=== PATIENT | female | born 1935 | race Caucasian/White ===

== ENCOUNTER 2016-02-08 09:48 | Inpatient (IN) | payer MEDICARE, OTHER ==
[2016-02-08] VITALS (9 sets, daily range): BP systolic 118–134; RESP 16–24; TEMP 97.8–98.5; Ht 154.9 cm; Wt 56.2 kg
[~2016-02-08] VITALS: Ht 154.9 cm; Wt 56.2 kg
[2016-02-08] MEDS ORDERED: DUONEB INH PRN (12:15)
[2016-02-08] MEDS: DUONEB INH SCH ×3 (14:32→23:12)
[2016-02-08] MEDS: LEVOTHYROXINE 0.175 MG TAB PO SCH (17:59)
[2016-02-08] MEDS: PANTOPRAZOLE 40 MG TAB PO SCH (18:00)
[2016-02-08] MEDS: MIRTAZAPINE 15 MG TAB PO SCH (18:58)
[2016-02-08] MEDS: AMIODARONE 200 MG TAB PO SCH (18:58)
[2016-02-08] MEDS: DOXYCYCLINE 100 MG TAB PO SCH (18:58)
[2016-02-08] MEDS: Furosemide 40 MG TAB PO SCH (18:58)
[2016-02-08] MEDS: GUAIFENESIN ER 600 MG TABCR PO SCH (21:22)
[2016-02-08] MEDS: Ascorbic Acid 500 MG TAB PO SCH (21:23)
[2016-02-08] MEDS: SPIRONOLACTONE 25 MG TAB PO SCH (21:23)
[2016-02-08] MEDS: DOCUSATE SOD 100 MG CAP PO SCH (21:23)
[2016-02-08] MEDS: GABAPENTIN 600 MG TAB PO SCH (21:25)
[2016-02-09] VITALS (11 sets, daily range): BP systolic 118–137; RESP 20; TEMP 97.5–98.7
[2016-02-09] MEDS: DUONEB INH SCH ×5 (05:12→23:12)
[2016-02-09] MEDS: LEVOTHYROXINE 0.175 MG TAB PO SCH (06:21)
[2016-02-09] MEDS: PANTOPRAZOLE 40 MG TAB PO SCH (06:21)
[2016-02-09] MEDS: GUAIFENESIN ER 600 MG TABCR PO SCH ×2 (08:20→20:20)
[2016-02-09] MEDS: Ascorbic Acid 500 MG TAB PO SCH ×2 (08:20→20:20)
[2016-02-09] MEDS: GABAPENTIN 300 MG CAP PO SCH (08:20)
[2016-02-09] MEDS: DOXYCYCLINE 100 MG TAB PO SCH (08:20)
[2016-02-09] MEDS: Furosemide 40 MG TAB PO SCH ×2 (08:21→17:07)
[2016-02-09] MEDS: MIRTAZAPINE 15 MG TAB PO SCH (08:21)
[2016-02-09] MEDS: AMIODARONE 200 MG TAB PO SCH (08:21)
[2016-02-09] MEDS: DOCUSATE SOD 100 MG CAP PO SCH ×2 (08:21→20:19)
[2016-02-09] MEDS: SPIRONOLACTONE 25 MG TAB PO SCH ×2 (08:21→20:20)
[2016-02-09] MEDS ORDERED: PHARMACY TO DOSE VANCOMYCIN IV SCH (19:20)
[2016-02-09] MEDS: CEFTRIAXONE 1 GM in SODIUM CHLORIDE 0.9% 50 ML IV SCH (20:00)
[2016-02-09] MEDS: GABAPENTIN 600 MG TAB PO SCH (20:20)
[2016-02-09] MEDS: VANCOMYCIN 750 MG in SODIUM CHLORIDE 0.9% 250 ML IV SCH (20:49)
[2016-02-09] MEDS ORDERED: POLYETHYLENE GLYCOL 17 GM PACKET PO SCH (21:00)
[2016-02-09] MEDS ORDERED: SODIUM CHLORIDE 0.9% FLUSH BAG 500 ML IV PRN (23:40)
[2016-02-09] MEDS ORDERED: SALINE FLUSH 10 ML FLUSH PRN (23:45)
[2016-02-10 03:12] VITALS: BP_SYST 128; RESP 20; TEMP 97.6
[2016-02-10] MEDS: LEVOTHYROXINE 0.175 MG TAB PO SCH (06:02)
[2016-02-10] MEDS: SODIUM CHLORIDE 0.9% FLUSH BAG 500 ML IV SCH (06:02)
[2016-02-10] MEDS: PANTOPRAZOLE 40 MG TAB PO SCH (06:02)
[2016-02-10] MEDS: DUONEB INH SCH ×5 (06:41→22:06)
[2016-02-10 07:44] VITALS: BP_SYST 105; RESP 24; TEMP 99
[2016-02-10 08:23] VITALS: BP_SYST 128
[2016-02-10] MEDS: MIRTAZAPINE 15 MG TAB PO SCH (09:21)
[2016-02-10] MEDS: Ascorbic Acid 500 MG TAB PO SCH ×2 (09:21→20:46)
[2016-02-10] MEDS: GUAIFENESIN ER 600 MG TABCR PO SCH ×2 (09:21→20:46)
[2016-02-10] MEDS: AMIODARONE 200 MG TAB PO SCH (09:21)
[2016-02-10] MEDS: Furosemide 40 MG TAB PO SCH ×2 (09:22→17:09)
[2016-02-10] MEDS: SALINE FLUSH 10 ML FLUSH SCH ×2 (09:22→20:49)
[2016-02-10] MEDS: CEFTRIAXONE 1 GM in SODIUM CHLORIDE 0.9% 50 ML IV SCH (09:22)
[2016-02-10] MEDS: DOCUSATE SOD 100 MG CAP PO SCH ×2 (09:22→20:46)
[2016-02-10] MEDS: GABAPENTIN 300 MG CAP PO SCH (09:22)
[2016-02-10] MEDS: SPIRONOLACTONE 25 MG TAB PO SCH ×2 (09:22→20:46)
[2016-02-10] MEDS: VANCOMYCIN 750 MG in SODIUM CHLORIDE 0.9% 250 ML IV SCH ×2 (10:26→20:50)
[2016-02-10 10:54] VITALS: BP_SYST 128; RESP 24; TEMP 97.2
[2016-02-10 14:56] VITALS: BP_SYST 133; RESP 16; TEMP 98.7
[2016-02-10] MEDS ORDERED: BISACODYL 10 MG SUPP RECTAL PRN (17:15)
[2016-02-10 19:38] VITALS: BP_SYST 111; RESP 16; TEMP 98.1
[2016-02-10] MEDS: GABAPENTIN 600 MG TAB PO SCH (20:46)
[2016-02-10] MEDS: SERTRALINE 50 MG TAB PO SCH (20:46)
[2016-02-10] MEDS: POLYETHYLENE GLYCOL 17 GM PACKET PO SCH (20:48)
[2016-02-11] VITALS (8 sets, daily range): BP systolic 109–132; RESP 20–24; TEMP 97.3–98.1
[2016-02-11] MEDS: SODIUM CHLORIDE 0.9% FLUSH BAG 500 ML IV SCH (06:17)
[2016-02-11] MEDS: LEVOTHYROXINE 0.175 MG TAB PO SCH (06:18)
[2016-02-11] MEDS: PANTOPRAZOLE 40 MG TAB PO SCH (06:18)
[2016-02-11] MEDS: DUONEB INH SCH ×4 (07:50→19:58)
[2016-02-11] MEDS: POLYETHYLENE GLYCOL 17 GM PACKET PO SCH ×2 (08:23→21:00)
[2016-02-11] MEDS: MIRTAZAPINE 15 MG TAB PO SCH (08:33)
[2016-02-11] MEDS: SALINE FLUSH 10 ML FLUSH SCH ×2 (08:33→21:09)
[2016-02-11] MEDS: GUAIFENESIN ER 600 MG TABCR PO SCH ×2 (08:33→21:08)
[2016-02-11] MEDS: CEFTRIAXONE 1 GM in SODIUM CHLORIDE 0.9% 50 ML IV SCH (08:33)
[2016-02-11] MEDS: Furosemide 40 MG TAB PO SCH ×2 (08:34→16:50)
[2016-02-11] MEDS: Ascorbic Acid 500 MG TAB PO SCH ×2 (08:34→21:08)
[2016-02-11] MEDS: GABAPENTIN 300 MG CAP PO SCH (08:34)
[2016-02-11] MEDS: SPIRONOLACTONE 25 MG TAB PO SCH ×2 (08:34→21:08)
[2016-02-11] MEDS: AMIODARONE 200 MG TAB PO SCH (08:34)
[2016-02-11] MEDS: DOCUSATE SOD 100 MG CAP PO SCH ×2 (08:34→21:08)
[2016-02-11] MEDS: VANCOMYCIN 750 MG in SODIUM CHLORIDE 0.9% 250 ML IV SCH (09:55)
[2016-02-11] MEDS ORDERED: VANCOMYCIN 500 MG in SODIUM CHLORIDE 0.9% 100 ML IV ONE (11:20)
[2016-02-11] MEDS ORDERED: VANCOMYCIN 1,000 MG in SODIUM CHLORIDE 0.9% 250 ML IV SCH (21:00)
[2016-02-11] MEDS: GABAPENTIN 600 MG TAB PO SCH (21:08)
[2016-02-11] MEDS: SERTRALINE 50 MG TAB PO SCH (21:08)
[2016-02-12] VITALS (7 sets, daily range): BP systolic 108–144; RESP 18–20; TEMP 97.8–99.6
[2016-02-12] MEDS: SODIUM CHLORIDE 0.9% FLUSH BAG 500 ML IV SCH (06:11)
[2016-02-12] MEDS: LEVOTHYROXINE 0.175 MG TAB PO SCH (06:11)
[2016-02-12] MEDS: PANTOPRAZOLE 40 MG TAB PO SCH (06:11)
[2016-02-12] MEDS: DUONEB INH SCH ×6 (06:19→23:00)
[2016-02-12] MEDS: Ascorbic Acid 500 MG TAB PO SCH ×2 (08:35→20:21)
[2016-02-12] MEDS: SALINE FLUSH 10 ML FLUSH SCH ×2 (08:35→20:22)
[2016-02-12] MEDS: SPIRONOLACTONE 25 MG TAB PO SCH ×2 (08:35→20:21)
[2016-02-12] MEDS: AMIODARONE 200 MG TAB PO SCH (08:35)
[2016-02-12] MEDS: CEFTRIAXONE 1 GM in SODIUM CHLORIDE 0.9% 50 ML IV SCH (08:35)
[2016-02-12] MEDS: GABAPENTIN 300 MG CAP PO SCH (08:35)
[2016-02-12] MEDS: GUAIFENESIN ER 600 MG TABCR PO SCH ×2 (08:35→20:21)
[2016-02-12] MEDS: MIRTAZAPINE 15 MG TAB PO SCH (08:35)
[2016-02-12] MEDS: DOCUSATE SOD 100 MG CAP PO SCH ×2 (08:36→20:21)
[2016-02-12] MEDS: Furosemide 40 MG TAB PO SCH ×2 (08:36→17:00)
[2016-02-12] MEDS: POLYETHYLENE GLYCOL 17 GM PACKET PO SCH ×2 (08:36→20:21)
[2016-02-12] MEDS: SERTRALINE 50 MG TAB PO SCH (20:21)
[2016-02-12] MEDS: GABAPENTIN 600 MG TAB PO SCH (20:21)
[2016-02-13 03:24] VITALS: BP_SYST 109; TEMP 97.8
[2016-02-13 03:25] VITALS: RESP 20
[2016-02-13] MEDS: LEVOTHYROXINE 0.175 MG TAB PO SCH (06:18)
[2016-02-13] MEDS: SODIUM CHLORIDE 0.9% FLUSH BAG 500 ML IV SCH (06:18)
[2016-02-13] MEDS: PANTOPRAZOLE 40 MG TAB PO SCH (06:18)
[2016-02-13 07:27] VITALS: BP_SYST 114; RESP 18; TEMP 97.5
[2016-02-13] MEDS: DUONEB INH SCH ×2 (07:33→10:51)
[2016-02-13] MEDS: POLYETHYLENE GLYCOL 17 GM PACKET PO SCH (09:00)
[2016-02-13] MEDS: Ascorbic Acid 500 MG TAB PO SCH (09:13)
[2016-02-13] MEDS: SALINE FLUSH 10 ML FLUSH SCH (09:13)
[2016-02-13] MEDS: GUAIFENESIN ER 600 MG TABCR PO SCH (09:13)
[2016-02-13] MEDS: MIRTAZAPINE 15 MG TAB PO SCH (09:13)
[2016-02-13] MEDS: AMIODARONE 200 MG TAB PO SCH (09:13)
[2016-02-13] MEDS: CEFTRIAXONE 1 GM in SODIUM CHLORIDE 0.9% 50 ML IV SCH (09:13)
[2016-02-13] MEDS: DOCUSATE SOD 100 MG CAP PO SCH (09:14)
[2016-02-13] MEDS: SPIRONOLACTONE 25 MG TAB PO SCH (09:14)
[2016-02-13] MEDS: GABAPENTIN 300 MG CAP PO SCH (09:14)
[2016-02-13] MEDS: Furosemide 40 MG TAB PO SCH (09:14)
[2016-02-13 10:44] VITALS: BP_SYST 127; RESP 18; TEMP 98.4
[2016-02-13 12:38] VITALS: BP_SYST 127; RESP 18; TEMP 98.4
== END 2016-02-13 13:31 | disposition home or self-care (01) | DRG 189 ==
LOC: ENRESERVDT → ENRESERVTM → 3NT 10:41 → UNDOADMOB 10:41 → 3NT 11:35 → ENPENDDIS 02-09 20:17 → OBSVTOIN 02-09 20:17
PROVIDERS: ADMIT Hospitalist; ATTEND Hospitalist
CPT/HCPCS: 71250; 80048; 80053; 82553; 83605; 84145; 84484; 85025; 87040; 87804; 94640; 94667; 94799; 99220; 99223; 99231; 99232; 99233; 99238